=== PATIENT | female | born 1995 | race African-American/Black ===

== ENCOUNTER 2017-02-17 00:11 | Emergency (ER) | payer MEDICAID, OTHER ==
[~2017-02-17] VITALS: Ht 170.2 cm; Wt 80.0 kg
[~2017-02-17 00:11] MED LIST: ZOFR4TAB3 SL
[2017-02-17 00:12] VITALS: BP 138/101; PULSE 88; RESP 18; TEMP 98.2; O2SAT 99
== END 2017-02-17 02:10 | disposition left against medical advice (07) ==
LOC: NED 00:11
DX: R68.89 Other general symptoms and signs (principal)
CPT/HCPCS: 99281